=== PATIENT | female | born 1985 | race African-American/Black ===

== ENCOUNTER 2020-10-20 21:19 | Emergency (ER) | payer MEDICAID, OTHER ==
[~2020-10-20] VITALS: Ht 162.6 cm; Wt 72.6 kg
[2020-10-20 21:29] VITALS: BP 130/85
== END 2020-10-21 03:00 | disposition home or self-care (01) ==
LOC: ER 21:22
DX: S83.91XA Sprain of unspecified site of right knee, initial encounter (principal); J45.909 Unspecified asthma, uncomplicated; Z32.02 Encounter for pregnancy test, result negative; X58.XXXA Exposure to other specified factors, initial encounter; Y93.89 Activity, other specified; Y92.89 Other specified places as the place of occurrence of the external cause; Y99.8 Other external cause status
CPT/HCPCS: 29505; 73562; 81025; 93971